=== PATIENT | female | born 1990 ===

== ENCOUNTER 2016-09-23 20:50 | Emergency (ER) | payer BC ==
[2016-09-23 21:02] VITALS: BP 121/74
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
== END 2016-09-23 21:17 | disposition home or self-care (01) ==
LOC: UCEAST 20:50
DX: S06.0X0A Concussion without loss of consciousness, initial encounter (principal); W00.0XXA Fall on same level due to ice and snow, initial encounter; Y93.9 Activity, unspecified; Y92.481 Parking lot as the place of occurrence of the external cause; F17.210 Nicotine dependence, cigarettes, uncomplicated
CPT/HCPCS: 99201; G0463